=== PATIENT | female | born 1980 | race Caucasian/White ===

== ENCOUNTER 2018-12-07 08:44 | Emergency (ER) | payer OTHER, SELFPAY ==
[2018-12-07 08:59] VITALS: BP 136/80; PULSE 81; RESP 14; TEMP 36.7; O2SAT 100
--- NOTE | 2018-12-07 09:04 | DI.US.S_ITS ---
PROCEDURE: US OB <= 14 WEEKS FETUS INDICATIONS: LEFT LOWER QUADRANT PAIN OUTSIDE/PRIOR DATING DATA: Last menstrual period (LMP): 10/06/18. LMP-based estimated date of delivery (AVI): 07/13/19. First dating scan (date and location): 12/07/18 at [facility]. Estimated date of delivery (AVI) from first dating scan: 07/09/19. TECHNIQUE: Real-time scanning was performed of the fetus and maternal pelvic organs, with image documentation. Endovaginal scanning was also performed to better visualize the fetus and maternal ovaries. COMPARISON: None. FINDINGS: Embryo: Examination of pelvis shows single intrauterine gestation with fetus a yolk sac seen. heart rate is 178 beats per minute. [place]-rump length measures 2.6 cm. Estimated gestational age is 9 weeks 3 days. 2 x 1.7 x 1.2 cm complex fluid collection adjacent to gestational sac is seen, and may represent subchorionic hematoma. No internal vascularity is seen. Measurement variability in dating: +/- 4 weeks by LMP, +/- 7 days by mean sac diameter (use before 6 weeks gestation if crown-rump length not able to be measured), +/- 5 days by crown-rump length (up to 8 weeks 6 days gestation), +/- 7 days by crown-rump length (up to 13 weeks 6 days gestation). Maternal organs: Ovaries are visualized and are within normal limits.. Limited images through the kidneys demonstrate no hydronephrosis. IMPRESSION: 1. Single live intrauterine with fetus a yolk sac seen. heart rate is 178 beats per minute. Estimated gestational age is 9 weeks 3 days. 2. Suggestion of 2 x 1.7 x 1.2 cm subchorionic hematoma. 3. Bilateral ovaries are within normal limits. Dictated by: Anthony Jackson M.D. on 12/07/2018 at 10:30 Approved by: Anthony Jackson M.D. on 12/07/2018 at 10:34
[2018-12-07 10:01] LABS: Add Manual Diff / Slide Review NO; Basophils Absolute Auto 0 /uL (0-100); Basophils Percent Auto 0.3 % (0-2); Eosinophils Absolute Auto 0 /uL (0-450); Eosinophils Percent Auto 0.4 % (2-4); Hematocrit 39.3 % (36-46); Hemoglobin 13.8 g/dL (12.0-16.0); Lymphocytes Absolute Auto 1700 /uL (1100-4500); Lymphocytes Percent Auto 16.6 % (25-40); Mean Corpuscular HGB Conc 35.1 % (30-36); Mean Corpuscular Hemoglobin 30.9 PG (26-34); Mean Corpuscular Volume 88.1 fL (80-100); Monocytes Absolute Auto 600 /uL (0-900); Monocytes Percent Auto 5.6 % (3-14); Neutrophils Absolute Auto 7800 /uL (1500-7000); Neutrophils Percent Auto 77.1 % (50-75); Platelet Count 264 X10^3/uL (150-400); Red Blood Cell Count 4.46 X10^6/uL (4.0-5.2); Red Cell Distribution Width 12.8 % (11.6-14.8); White Blood Cell Count 10.1 X10^3/uL (4.5-11.0)
[2018-12-07 10:12] LABS: Blood Urea Nitrogen 8 mg/dL (7-17); Calcium 9.1 mg/dL (8.4-10.2); Carbon Dioxide 25 mmol/L (22-32); Chloride 100 mmol/L (98-107); Estimated Glomerular Filt Rate > 60.0 mL/min (>60); Glucose 87 mg/dL (70-100); HEMOLYSIS < 15 (0-50); Potassium 3.9 mmol/L (3.4-5.1); Sodium 135 mmol/L (137-145)
--- NOTE | 2018-12-07 10:16 | ED.ABDPAIN ---
HPI - Abdominal Pain General Chief Complaint: Abdominal Pain Stated Complaint: 9 weeks ,need checked for etopic Time Seen by Provider: 12/07/18 08:46 Source: patient Mode of arrival: ambulatory Limitations: no limitations History of Present Illness HPI narrative: 38-year-old female nonsmoker with noncontributory medical history is a at 9 weeks by dates. She has had left lower quadrant pain, worsening with range of motion or movement over the past week or so. She denies any vaginal bleeding, discharge or dysuria, frequency or urgency. She denies any fever chills and is not dizzy nor weak or lightheaded. She has had no care with this and called the nursing hotline and was sent here for evaluation of possible ectopic. MD complaint: abdominal pain Onset (ago): week(s) Pain Consistency: constant Location: LLQ Severity: mild Quality: cramping Radiation: none Migration to: no migration Relieving factors: movement Exacerbating factors: rest Associated symptoms: denies other symptoms Review of Systems Constitutional Denies chills, Denies fever(s), Denies lethargy and Denies weakness Eyes Denies change in vision, Denies eye discharge, Denies irritation and Denies loss of vision ENT Ears, Nose, Mouth, and Throat: Denies change in voice, Denies neck pain and Denies sore throat Cardiovascular Denies chest pain, Denies irregular heart rhythm, Denies lightheadedness, Denies palpitations, Denies dyspnea, Denies dyspnea on exertion and Denies orthopnea Respiratory Denies cough, Denies dyspnea, Denies dyspnea on exertion and Denies wheezing Gastrointestinal Gastrointestinal: Reports abdominal pain, Denies change in bowel habits, Denies diarrhea, Denies nausea and Denies vomiting Genitourinary Denies hematuria, Denies flank pain, Denies urinary incontinence and Denies urinary urgency Musculoskeletal Denies neck pain Integumentary/Breasts Denies pruritus, Denies erythema, Denies rash and Denies wounds Neurologic Denies confusion, Denies loss of vision and Denies weakness Psychiatric Denies anxiety, Denies confusion, Denies depression, Denies homicidal ideation and Denies suicidal ideation Endocrine Denies palpitations Hematologic/Lymphatic Denies easy bruising Allergic/Immunologic Denies wheezing PFSH Social History Smoking Status: Never smoker Social History Smoking Status: Never smoker Exam Narrative Exam Narrative: GENERAL: This is a well-nourished, well-developed patient, in mild distress. HEAD: Atraumatic. Normocephalic. No temporal or scalp tenderness. EYES: Pupils equal round and reactive. Extraocular motions intact. No scleral icterus. No injection or drainage. ENT: Nose without bleeding, purulent drainage or septal hematoma. Throat without erythema, tonsillar hypertrophy or exudate. Uvula midline. Airway patent. NECK: Trachea midline. No JVD or lymphadenopathy. Supple, nontender, no meningeal signs. CARDIOVASCULAR: Regular rate and rhythm without murmurs, gallops, or rubs. RESPIRATORY: Clear to auscultation. Breath sounds equal bilaterally. No wheezes, rales, or rhonchi. GASTROINTESTINAL: Abdomen soft, left lower quadrant tender to palpate, nondistended. No hepato-splenomegaly, or palpable masses. No guarding. EXTREMITIES: No clubbing, cyanosis, or edema. No joint tenderness, effusion, or edema noted. BACK: Nontender without deformity or crepitance. No flank tenderness. NEURO: AOx3. SKIN: No rash or erythema. Initial Vital Signs Initial Vital Signs: Vital Signs Temperature 98.1 F 12/07/18 08:59 Pulse Rate 81 12/07/18 08:59 Respiratory Rate 14 12/07/18 08:59 Blood Pressure 136/80 12/07/18 08:59 Pulse Oximetry 100 12/07/18 08:59 Course Orders Ordered: ED Orders 12/07/18 09:04 US OB <= 14 weeks fetus Stat 12/07/18 09:53 ABO RH Type Stat Basic Metabolic Panel Stat Complete Blood Count AUTO DIFF Stat HCG Quantitative Stat Vital Signs - 8 hr 12/07/18 08:59 Temperature 98.1 F Pulse Rate 81 Respiratory Rate 14 Blood Pressure 136/80 Pulse Oximetry 100 MDM - Abdominal Pain Lab Data Result diagrams: 12/07/18 09:53 12/07/18 09:53 Lab Results 12/07/18 12/07/18 12/07/18 Range/Units 09:53 09:53 09:53 WBC 10.1 (4.5-11.0) X10^3/uL RBC 4.46 (4.0-5.2) X10^6/uL Hgb 13.8 (12.0-16.0) g/dL Hct 39.3 (36-46) % MCV 88.1 (80-100) fL MCH 30.9 (26-34) PG MCHC 35.1 (30-36) % RDW 12.8 (11.6-14.8) % Plt Count 264 (150-400) X10^3/uL Neut % (Auto) 77.1 H (50-75) % Lymph % (Auto) 16.6 L (25-40) % [place] % (Auto) 5.6 (3-14) % Eos % (Auto) 0.4 L (2-4) % Baso % (Auto) 0.3 (0-2) % Neut # (Auto) 7800 H (0583-2219) /uL Lymph # (Auto) 1700 (3796-1289) /uL [place] # (Auto) 600 (0-900) /uL Eos # (Auto) 0 (0-450) /uL Baso # (Auto) 0 (0-100) /uL Sodium (137-145) mmol/L Potassium (3.4-5.1) mmol/L Chloride (98-107) mmol/L Carbon Dioxide (22-32) mmol/L BUN (7-17) mg/dL Creatinine (0.52-1.04) mg/dL Estimated GFR (>60) mL/min BUN/Creatinine Ratio (6-22) Glucose (70-100) mg/dL Calcium (8.4-10.2) mg/dL HCG, Quant 551031 mIU/mL Blood Type O Positive 12/07/18 Range/Units 09:53 WBC (4.5-11.0) X10^3/uL RBC (4.0-5.2) X10^6/uL Hgb (12.0-16.0) g/dL Hct (36-46) % MCV (80-100) fL MCH (26-34) PG MCHC (30-36) % RDW (11.6-14.8) % Plt Count (150-400) X10^3/uL Neut % (Auto) (50-75) % Lymph % (Auto) (25-40) % [place] % (Auto) (3-14) % Eos % (Auto) (2-4) % Baso % (Auto) (0-2) % Neut # (Auto) (4746-4794) /uL Lymph # (Auto) (5316-7163) /uL [place] # (Auto) (0-900) /uL Eos # (Auto) (0-450) /uL Baso # (Auto) (0-100) /uL Sodium 135 L (137-145) mmol/L Potassium 3.9 (3.4-5.1) mmol/L Chloride 100 (98-107) mmol/L Carbon Dioxide 25 (22-32) mmol/L BUN 8 (7-17) mg/dL Creatinine 0.50 L (0.52-1.04) mg/dL Estimated GFR > 60.0 (>60) mL/min BUN/Creatinine Ratio 16.0 (6-22) Glucose 87 (70-100) mg/dL Calcium 9.1 (8.4-10.2) mg/dL HCG, Quant mIU/mL Blood Type Point of care testing: Urine Dip Bedside Urine Glucose Negative Bedside Urine Bilirubin - Negative Bedside Urine Ketone - Negative Urine Specific [place] 1.010 Bedside Urine Occult Blood - Negative Bedside Urine pH 7.0 Bedside Urine Protein - Negative Bedside Urine Urobilinogen - Negative Bedside Urine Nitrite - Negative Bedside Urine Leukocytes - Negative Esterase Imaging Data US - abdomen: Radiologist's impression: Linda Diaz F 1980 [place] [address] Ultrasound Report Signed Patient: Linda Diaz EMR#: [id number] : 1980Acct:[id number] Age/Sex: 38 / FDate of Service: 12/07/18 Loc: ED Accession Number: [id number] Procedure: US OB <= 14 weeks fetus Ordering Provider: Alex Ahuja D.O. PROCEDURE: US OB <= 14 WEEKS FETUS INDICATIONS: LEFT LOWER QUADRANT PAIN OUTSIDE/PRIOR DATING DATA: Last menstrual period (LMP): 10/06/18. LMP-based estimated date of delivery (AVI): 07/13/19. First dating scan (date and location): 12/07/18 at [facility]. Estimated date of delivery (AVI) from first dating scan: 07/09/19. TECHNIQUE: Real-time scanning was performed of the fetus and maternal pelvic organs, with image documentation. Endovaginal scanning was also performed to better visualize the fetus and maternal ovaries. COMPARISON: None. FINDINGS: Embryo: Examination of pelvis shows single intrauterine gestation with fetus a yolk sac seen. heart rate is 178 beats per minute. [place]-rump length measures 2.6 cm. Estimated gestational age is 9 weeks 3 days. 2 x 1.7 x 1.2 cm complex fluid collection adjacent to gestational sac is seen, and may represent subchorionic hematoma. No internal vascularity is seen. Measurement variability in dating: +/- 4 weeks by LMP, +/- 7 days by mean sac diameter (use before 6 weeks gestation if crown-rump length not able to be measured), +/- 5 days by crown-rump length (up to 8 weeks 6 days gestation), +/- 7 days by crown-rump length (up to 13 weeks 6 days gestation). Maternal organs: Ovaries are visualized and are within normal limits.. Limited images through the kidneys demonstrate no hydronephrosis. IMPRESSION: 1. Single live intrauterine with fetus a yolk sac seen. heart rate is 178 beats per minute. Estimated gestational age is 9 weeks 3 days. 2. Suggestion of 2 x 1.7 x 1.2 cm subchorionic hematoma. 3. Bilateral ovaries are within normal limits. Dictated by: Anthony Jackson M.D. on 12/07/2018 at 10:30 Approved by: Anthony Jackson M.D. on 12/07/2018 at 10:34 Discharge Plan Departure Patient Disposition: Home Clinical Impression: Pelvic pain affecting Qualifiers: Trimester: first trimester Qualified Code(s): O26.891 - Other specified related conditions, first trimester Discharge Date/Time: 12/07/18 10:28 Interventions: ED Discharge Assessment Last Done: 12/07/18 10:29 Instructions: DI for Pelvic Pain Activity Restrictions/Additional Instructions: *You have been diagnosed with [pelvic pain in . Ultrasound confirms intrauterine ] *What to do: *Take medications as directed *Follow up with your OB provider in 2-3 days, call for an appointment. Let them know you were seen in the Emergency Department and that we ask that you be seen in follow up *Return to ER if you should have any new, worsening or concerning symptoms
--- NOTE | 2018-12-07 10:19 | ED_ITS ---
HPI - Abdominal Pain General Chief Complaint: Abdominal Pain Stated Complaint: 9 weeks ,need checked for etopic Time Seen by Provider: 12/07/18 08:46 Source: patient Mode of arrival: ambulatory Limitations: no limitations History of Present Illness HPI narrative: 38-year-old female nonsmoker with noncontributory medical history is a at 9 weeks by dates. She has had left lower quadrant pain, worsening with range of motion or movement over the past week or so. She denies any vaginal bleeding, discharge or dysuria, frequency or urgency. She denies any fever chills and is not dizzy nor weak or lightheaded. She has had no care with this and called the nursing hotline and was sent here for evaluation of possible ectopic. MD complaint: abdominal pain Onset (ago): week(s) Pain Consistency: constant Location: LLQ Severity: mild Quality: cramping Radiation: none Migration to: no migration Relieving factors: movement Exacerbating factors: rest Associated symptoms: denies other symptoms Review of Systems Constitutional Denies chills, Denies fever(s), Denies lethargy and Denies weakness Eyes Denies change in vision, Denies eye discharge, Denies irritation and Denies loss of vision ENT Ears, Nose, Mouth, and Throat: Denies change in voice, Denies neck pain and Denies sore throat Cardiovascular Denies chest pain, Denies irregular heart rhythm, Denies lightheadedness, Denies palpitations, Denies dyspnea, Denies dyspnea on exertion and Denies orthopnea Respiratory Denies cough, Denies dyspnea, Denies dyspnea on exertion and Denies wheezing Gastrointestinal Gastrointestinal: Reports abdominal pain, Denies change in bowel habits, Denies diarrhea, Denies nausea and Denies vomiting Genitourinary Denies hematuria, Denies flank pain, Denies urinary incontinence and Denies urinary urgency Musculoskeletal Denies neck pain Integumentary/Breasts Denies pruritus, Denies erythema, Denies rash and Denies wounds Neurologic Denies confusion, Denies loss of vision and Denies weakness Psychiatric Denies anxiety, Denies confusion, Denies depression, Denies homicidal ideation and Denies suicidal ideation Endocrine Denies palpitations Hematologic/Lymphatic Denies easy bruising Allergic/Immunologic Denies wheezing PFSH Social History Smoking Status: Never smoker Social History Smoking Status: Never smoker Exam Narrative Exam Narrative: GENERAL: This is a well-nourished, well-developed patient, in mild distress. HEAD: Atraumatic. Normocephalic. No temporal or scalp tenderness. EYES: Pupils equal round and reactive. Extraocular motions intact. No scleral icterus. No injection or drainage. ENT: Nose without bleeding, purulent drainage or septal hematoma. Throat without erythema, tonsillar hypertrophy or exudate. Uvula midline. Airway patent. NECK: Trachea midline. No JVD or lymphadenopathy. Supple, nontender, no meningeal signs. CARDIOVASCULAR: Regular rate and rhythm without murmurs, gallops, or rubs. RESPIRATORY: Clear to auscultation. Breath sounds equal bilaterally. No wheezes, rales, or rhonchi. GASTROINTESTINAL: Abdomen soft, left lower quadrant tender to palpate, nondistended. No hepato-splenomegaly, or palpable masses. No guarding. EXTREMITIES: No clubbing, cyanosis, or edema. No joint tenderness, effusion, or edema noted. BACK: Nontender without deformity or crepitance. No flank tenderness. NEURO: AOx3. SKIN: No rash or erythema. Initial Vital Signs Initial Vital Signs: Vital Signs Temperature 98.1 F 12/07/18 08:59 Pulse Rate 81 12/07/18 08:59 Respiratory Rate 14 12/07/18 08:59 Blood Pressure 136/80 12/07/18 08:59 Pulse Oximetry 100 12/07/18 08:59 Course Orders Ordered: ED Orders 12/07/18 09:04 US OB <= 14 weeks fetus Stat 12/07/18 09:53 ABO RH Type Stat Basic Metabolic Panel Stat Complete Blood Count AUTO DIFF Stat HCG Quantitative Stat Vital Signs - 8 hr 12/07/18 08:59 Temperature 98.1 F Pulse Rate 81 Respiratory Rate 14 Blood Pressure 136/80 Pulse Oximetry 100 MDM - Abdominal Pain Lab Data Result diagrams: 12/07/18 09:53 12/07/18 09:53 Lab Results 12/07/18 12/07/18 12/07/18 Range/Units 09:53 09:53 09:53 WBC 10.1 (4.5-11.0) X10^3/uL RBC 4.46 (4.0-5.2) X10^6/uL Hgb 13.8 (12.0-16.0) g/dL Hct 39.3 (36-46) % MCV 88.1 (80-100) fL MCH 30.9 (26-34) PG MCHC 35.1 (30-36) % RDW 12.8 (11.6-14.8) % Plt Count 264 (150-400) X10^3/uL Neut % (Auto) 77.1 H (50-75) % Lymph % (Auto) 16.6 L (25-40) % [place] % (Auto) 5.6 (3-14) % Eos % (Auto) 0.4 L (2-4) % Baso % (Auto) 0.3 (0-2) % Neut # (Auto) 7800 H (7119-3753) /uL Lymph # (Auto) 1700 (7441-3924) /uL [place] # (Auto) 600 (0-900) /uL Eos # (Auto) 0 (0-450) /uL Baso # (Auto) 0 (0-100) /uL Sodium (137-145) mmol/L Potassium (3.4-5.1) mmol/L Chloride (98-107) mmol/L Carbon Dioxide (22-32) mmol/L BUN (7-17) mg/dL Creatinine (0.52-1.04) mg/dL Estimated GFR (>60) mL/min BUN/Creatinine Ratio (6-22) Glucose (70-100) mg/dL Calcium (8.4-10.2) mg/dL HCG, Quant 343384 mIU/mL Blood Type O Positive 12/07/18 Range/Units 09:53 WBC (4.5-11.0) X10^3/uL RBC (4.0-5.2) X10^6/uL Hgb (12.0-16.0) g/dL Hct (36-46) % MCV (80-100) fL MCH (26-34) PG MCHC (30-36) % RDW (11.6-14.8) % Plt Count (150-400) X10^3/uL Neut % (Auto) (50-75) % Lymph % (Auto) (25-40) % [place] % (Auto) (3-14) % Eos % (Auto) (2-4) % Baso % (Auto) (0-2) % Neut # (Auto) (9467-0222) /uL Lymph # (Auto) (6784-3498) /uL [place] # (Auto) (0-900) /uL Eos # (Auto) (0-450) /uL Baso # (Auto) (0-100) /uL Sodium 135 L (137-145) mmol/L Potassium 3.9 (3.4-5.1) mmol/L Chloride 100 (98-107) mmol/L Carbon Dioxide 25 (22-32) mmol/L BUN 8 (7-17) mg/dL Creatinine 0.50 L (0.52-1.04) mg/dL Estimated GFR > 60.0 (>60) mL/min BUN/Creatinine Ratio 16.0 (6-22) Glucose 87 (70-100) mg/dL Calcium 9.1 (8.4-10.2) mg/dL HCG, Quant mIU/mL Blood Type Point of care testing: Urine Dip Bedside Urine Glucose Negative Bedside Urine Bilirubin - Negative Bedside Urine Ketone - Negative Urine Specific [place] 1.010 Bedside Urine Occult Blood - Negative Bedside Urine pH 7.0 Bedside Urine Protein - Negative Bedside Urine Urobilinogen - Negative Bedside Urine Nitrite - Negative Bedside Urine Leukocytes - Negative Esterase Imaging Data US - abdomen: Radiologist's impression: Linda Diaz F 1980 [place] [address] Ultrasound Report Signed Patient: Linda Diaz EMR#: [id number] : 1980Acct:[id number] Age/Sex: 38 / FDate of Service: 12/07/18 Loc: ED Accession Number: [id number] Procedure: US OB <= 14 weeks fetus Ordering Provider: Alex Ahuja D.O. PROCEDURE: US OB <= 14 WEEKS FETUS INDICATIONS: LEFT LOWER QUADRANT PAIN OUTSIDE/PRIOR DATING DATA: Last menstrual period (LMP): 10/06/18. LMP-based estimated date of delivery (AVI): 07/13/19. First dating scan (date and location): 12/07/18 at [facility]. Estimated date of delivery (AVI) from first dating scan: 07/09/19. TECHNIQUE: Real-time scanning was performed of the fetus and maternal pelvic organs, with image documentation. Endovaginal scanning was also performed to better visualize the fetus and maternal ovaries. COMPARISON: None. FINDINGS: Embryo: Examination of pelvis shows single intrauterine gestation with fetus a yolk sac seen. heart rate is 178 beats per minute. [place]-rump length measures 2.6 cm. Estimated gestational age is 9 weeks 3 days. 2 x 1.7 x 1.2 cm complex fluid collection adjacent to gestational sac is seen, and may represent subchorionic hematoma. No internal vascularity is seen. Measurement variability in dating: +/- 4 weeks by LMP, +/- 7 days by mean sac diameter (use before 6 weeks gestation if crown-rump length not able to be measured), +/- 5 days by crown-rump length (up to 8 weeks 6 days gestation), +/- 7 days by crown-rump length (up to 13 weeks 6 days gestation). Maternal organs: Ovaries are visualized and are within normal limits.. Limited images through the kidneys demonstrate no hydronephrosis. IMPRESSION: 1. Single live intrauterine with fetus a yolk sac seen. heart rate is 178 beats per minute. Estimated gestational age is 9 weeks 3 days. 2. Suggestion of 2 x 1.7 x 1.2 cm subchorionic hematoma. 3. Bilateral ovaries are within normal limits. Dictated by: Anthony Jacskon M.D. on 12/07/2018 at 10:30 Approved by: Anthony Jackson M.D. on 12/07/2018 at 10:34 Discharge Plan Departure Patient Disposition: Home Clinical Impression: Pelvic pain affecting Qualifiers: Trimester: first trimester Qualified Code(s): O26.891 - Other specified related conditions, first trimester Discharge Date/Time: 12/07/18 10:28 Interventions: ED Discharge Assessment Last Done: 12/07/18 10:29 Instructions: DI for Pelvic Pain Activity Restrictions/Additional Instructions: *You have been diagnosed with [pelvic pain in . Ultrasound confirms intrauterine ] *What to do: *Take medications as directed *Follow up with your OB provider in 2-3 days, call for an appointment. Let them know you were seen in the Emergency Department and that we ask that you be seen in follow up *Return to ER if you should have any new, worsening or concerning symptoms
[2018-12-07 10:29] VITALS: BP 125/71; PULSE 72; RESP 16; O2SAT 100
[2018-12-07 11:05] LABS: HCG Quantitative /Beta subunit 142750 mIU/mL
== END 2018-12-07 10:28 | disposition home or self-care (01) ==
PROVIDERS: Emergency Provider Emergency Medicine
DX: O26.891 Other specified pregnancy related conditions, first trimester (principal); Z3A.09 9 weeks gestation of pregnancy
CPT/HCPCS: 36415; 76801; 76817; 80048; 81003; 84702; 85025; 86900; 86901; 99283; 99284